=== PATIENT | female | born 1985 | race Caucasian/White ===

== ENCOUNTER 2019-04-03 08:05 | Day surgery (SDC) | payer BC ==
[2019-04-02 14:48] LABS: BASOPHILS # (AUTO) 0.1 X10'3 (0-0.2); BASOPHILS % (AUTO) 1.1 % (0-1); EOSINOPHILS # (AUTO) 0.1 X10'3 (0-0.9); EOSINOPHILS % (AUTO) 1.8 % (0-6); LYMPHOCYTES # (AUTO) 1.7 X10'3 (1.1-4.8); LYMPHOCYTES % (AUTO) 22.1 % (21-51); MEAN CORPUSCULAR HEMOGLOBIN 29.7 PG (27.0-31.0); MEAN CORPUSCULAR HGB CONC 33.9 g/dL (33.0-36.5); MEAN CORPUSCULAR VOLUME 87.5 FL (78-98); MEAN PLATELET VOLUME 8.8 FL (7.4-10.4); MONOCYTES # (AUTO) 0.7 X10'3 (0-0.9); MONOCYTES % (AUTO) 8.8 % (2-12); NEUTROPHILS % (AUTO) 66.2 % (42-75); PRE OP HEMOGLOBIN 13.9 g/dL (12.0-16.0); PRE OP PLATELET COUNT 263 X10'3 (140-440); RED BLOOD COUNT 4.69 X10'6 (4.20-5.60); RED CELL DISTRIBUTION WIDTH 13.8 % (11.5-14.5)
[2019-04-02 14:51] LABS: CLARITY,URINE CLEAR (Clear); COLOR,URINE STRAW (Yellow); GLUCOSE, URINE NEGATIVE (Neg); KETONES,URINE NEGATIVE (Neg); LEUKOCYTE ESTERASE ,URINE NEGATIVE (Neg); NITRITES, URINE NEGATIVE (Neg); OCCULT BLOOD,URINE TRACE-INTACT (Neg); PROTEIN,URINE NEGATIVE (Neg); UROBILINOGEN,URINE 0.2 E.U/dL (0.2-1.0)
[2019-04-02 14:57] LABS: UA COLLECTION TYPE CLN CATCH MIDSTREAM
[2019-04-02 14:59] LABS: BACTERIA,URINE 1+ /HPF (Neg); RBC,URINE 0-2 /HPF (0-2); SQUAMOUS EPITHELIAL CELL,UR MODERATE /LPF (FEW); WBC,URINE 0-4 /HPF (0-4)
[2019-04-02 15:01] LABS: PRE OP PROTIME 10.6 SECONDS (9.0-12.0)
[2019-04-02 15:02] LABS: HCG SERUM QL NEGATIVE
[2019-04-02 15:06] LABS: ALBUMIN 4.1 G/DL (3.4-5.0); ALBUMIN/GLOBULIN RATIO 1.1 (1.1-1.5); ALKALINE PHOSPHATASE 72 IU/L (46-116); BLOOD UREA NITROGEN 11 MG/DL (7-18); BUN/CREATININE RATIO 13.1 (6.6-38.0); CALCIUM 9.8 MG/DL (8.5-10.1); CHLORIDE 104 MMOL/L (99-107); CREATININE 0.84 MG/DL (0.40-0.90); PRE OP ALT 27 U/L (30-65); PRE OP ANION GAP 9 (8-16); PRE OP AST 18 U/L (10-37); PRE OP BILIRUB, TOTAL 0.7 MG/DL (0.0-1.0); PRE OP GLUCOSE 92 MG/DL (70-104); PRE OP POTASSIUM 3.9 MMOL/L (3.4-5.1); PRE OP SODIUM 139 MMOL/L (135-145); TOTAL CARBON DIOXIDE 25.7 MMOL/L (24-32); eGFR 78 ML/MIN
[~2019-04-03] VITALS: Ht 162.6 cm; Wt 81.6 kg
[2019-04-03] VITALS (12 sets, daily range): BP systolic 121–155; BP diastolic 71–105
[~2019-04-03 08:05] MED LIST: MULT-1085 PO; ceFOXitin 2 GM ADDvantage bag 100 ML IV ONE; famotidine 20mg tablet PO ONE; ringers solution, lacted 1,000 ML IV SCH
[2019-04-03] MEDS ORDERED: morphine 10mg/ml inj. ONE ×2 (09:25→12:29)
[2019-04-03] MEDS ORDERED: LIDOcaine 1% 30ml preserv. free vial ONE (09:25)
[2019-04-03] MEDS ORDERED: BUPIVAcaine/PF 2.5 mg/ml (0.25%) 30ml vial ONE (09:25)
[2019-04-03] MEDS ORDERED: sevoflurane 250ml liquid IH ONE (10:55)
[2019-04-03] MEDS ORDERED: LIDOcaine 2% (20mg/ml) 5ml vial ONE (11:00)
[2019-04-03] MEDS ORDERED: rocuronium 10mg/ml inj IV ONE (11:00)
[2019-04-03] MEDS ORDERED: propofol inj 20 ML IV ONE (11:00)
[2019-04-03] MEDS ORDERED: fentaNYL/PF 50MCG/1 ML 2ML syringe ONE (11:04)
[2019-04-03] MEDS ORDERED: midazolam 2 mg/2 ml injection ONE (11:04)
[2019-04-03] MEDS ORDERED: ringers solution, lacted 1,000 ML IV SCH (11:15)
[2019-04-03] MEDS ORDERED: meperidine/PF 25mg/ml syringe IV PRN ×3 (11:15)
[2019-04-03] MEDS ORDERED: proCHLORperazine 10 MG/2 ml inj IV PRN (11:15)
[2019-04-03] MEDS ORDERED: morphine 4 MG/ML inj SYRINge IV PRN ×2 (11:15)
[2019-04-03] MEDS ORDERED: ondansetron/PF 4mg/2ml inj IV PRN (11:15)
[2019-04-03] MEDS ORDERED: ondansetron/PF 4mg/2ml inj ONE (11:26)
[2019-04-03] MEDS ORDERED: dexamethasone sod phosphate 4mg/ml inj. ONE (11:26)
[2019-04-03] MEDS ORDERED: glycopyrrolate 0.2mg/ml inj ONE (12:35)
[2019-04-03] MEDS ORDERED: neostigmine methylsulfate 1 MG/ML 10ml vial ONE (12:35)
[2019-04-03] MEDS ORDERED: meperidine/PF 50mg/ml syringe ONE (12:40)
--- NOTE | 2019-04-03 12:44 | NUR ---
Received from OR via [facility] , accompanied by Anesthesiologist GEOVANNA and report given by Anesthesiolgist. PATIENT WITH 20G PIV IN LEFT UE RUNNING LR AT 100. 10L MASK ON WITH 100% SATURATIONS. 3 ABDOMINAL LAP SITES PRESENT WITH SKIN AFFIX. ALL CDI. ONE MARINA PAD IN PLACE THAT IS CDI. NON VERBAL PAIN SCALE OF ZERO AT THIS TIME. VSS. Addendum: 04/03/19 at 1309 by Juan Samson RN, RN Amended: Links added.
[2019-04-03] MEDS ORDERED: acetaminophen 1,000mg/100ml IV 100 ML IV PRN (13:35)
--- NOTE | 2019-04-03 14:34 | NUR ---
ALL DC CRITERIA HAS BEEN MET. IV TAKEN OUT WITHOUT COMPLICATIONS. ALL INSTRUCTIONS COVERED AND ALL QUESTIONS ANSWERED. DRESSINGS CDI. OUT VIA WHEELCHAIR TO PERSONAL VEHICLE WHERE PATIENT WAS SECURED IN AND DRIVEN HOME BY FAMILY. VOIDED, AMBULATED, DRESSED WITH SPOUSE. Addendum: 04/03/19 at 1450 by Juan Samson RN, RN Amended: Links added.
== END 2019-04-03 14:34 | disposition home or self-care (01) ==
LOC: PAS 08:05
PROVIDERS: ATTEND Obstetrics & Gynecology
DX: Z30.432 Encounter for removal of intrauterine contraceptive device (principal); N85.8 Other specified noninflammatory disorders of uterus; Z79.899 Other long term (current) drug therapy; Z79.01 Long term (current) use of anticoagulants; Z87.891 Personal history of nicotine dependence; Z87.442 Personal history of urinary calculi
CPT/HCPCS: 36415; 58301; 58662; 80053; 81001; 82948; 84703; 85025; 85610; 85730; 86885; 86900; 86901; C1758; J0131; J0694; J1100; J2001; J2175; J2250; J2270; J2405; J2704; J2710; J3010; J3490; J7120; A4618; A7000